=== PATIENT | male | born 1960 | race Caucasian/White ===

== ENCOUNTER 2017-02-06 16:48 | Observation (INO) | payer MEDICARE, MEDICAID ==
[2017-02-06] MEDS ORDERED: Ondansetron 4 MG/2 ML SDV IV PRN (17:43)
[2017-02-06] MEDS ORDERED: Temazepam 15 MG Cap PO PRN (17:43)
[2017-02-06] MEDS ORDERED: HYDROmorphone 2 MG/ML SDV IVPUSH PRN (17:43)
[2017-02-06] MEDS ORDERED: diphenhydrAMINE 25 MG Cap PO PRN (19:29)
[2017-02-06] MEDS ORDERED: Ciprofloxacin in D5W 400 MG in Premix Bag 1 BAG IV SCH ×2 (20:00)
[2017-02-06] MEDS ORDERED: Mirtazapine 15 MG Tab PO SCH (21:00)
[2017-02-06] MEDS ORDERED: atorvaSTATin 20 MG Tab PO SCH (21:00)
[2017-02-06] MEDS ORDERED: metroNIDAZOLE/Normal Saline 100 ML ONE (21:09)
[2017-02-06] MEDS: Sodium Chloride 0.9% 250 ML IV SCH (21:15)
[2017-02-06] MEDS: metroNIDAZOLE/Normal Saline 500 MG in Premix Bag 1 BAG IV SCH (21:16)
[2017-02-06] MEDS: Sodium Chloride 0.9% 10 ML Syringe FLUSH PRN (21:30)
[2017-02-06] MEDS: sulfaSALAzine 500 MG Tab PO SCH (23:06)
[2017-02-06] MEDS: MIRTAZAPINE 15 MG PO ONE ×2 (23:07→23:09)
[2017-02-06] MEDS: ATORVASTATIN 20 MG PO ONE ×2 (23:07→23:09)
[2017-02-07] MEDS: Sodium Chloride 0.9% 10 ML Syringe FLUSH PRN ×4 (00:30→21:29)
[2017-02-07] MEDS: Cefotaxime 1,000 MG in Sodium Chloride 0.9% 50 ML IV SCH ×2 (00:35→05:35)
[2017-02-07] MEDS ORDERED: metroNIDAZOLE/Normal Saline 100 ML ONE (03:22)
[2017-02-07] MEDS: metroNIDAZOLE/Normal Saline 500 MG in Premix Bag 1 BAG IV SCH ×3 (03:35→20:11)
[2017-02-07] MEDS ORDERED: PERMETHRIN TOP SCH ×2 (08:30→21:00)
[2017-02-07] MEDS ORDERED: Aspirin 81 MG Tab.EC PO SCH (09:00)
[2017-02-07] MEDS ORDERED: BIMATOPROST 0.01% EYEBOTH SCH ×2 (09:00→21:00)
[2017-02-07] MEDS: RISPERIDONE 0.5 MG PO SCH (09:04)
[2017-02-07] MEDS: RANITIDINE 150 MG PO SCH (09:04)
[2017-02-07] MEDS: Lisinopril 10 MG Tab *PTOM PO SCH (09:04)
--- NOTE | 2017-02-07 10:12 | PCM.HP ---
H&P History of Present Illness - General Date of Service: 02/07/17 Source of Information: Patient History Limitations: Reports: No limitations - History of Present Illness Initial Comments - Free Text/Narative: This is a 56-year-old male that presented to the ER with moderate abdominal pain. The pain had been there for 2-4 days, insidious onset, progressively getting worse, located on the left lower quadrant. Nothing seemed to help the pain. He does have a history of diverticulosis. He denies any fever or chills or cough. He has denies any diarrhea or constipation or urinary symptoms. He was also being treated for scabies with a rash itchy and at antireticulin treatment. He has a history of type 2 diabetes, obstructive sleep apnea, and obesity have been relatively stable. Left Lower Abdomen Pain Score (Numeric/FACES): 2 - Related Data Allergies/Adverse Reactions: Allergies Allergy/AdvReac Type Severity Reaction Status Date / Time ciprofloxacin Allergy Cannot Verified 02/06/17 17:24 Remember Home Medications: Home Meds Amoxicillin/Potassium Clav [Amox Tr-K Clv 500-125 mg Tab] 1 each PO TID [History] Bimatoprost [LUMIGAN 0.01% Ophth Soln] 1 drop EYEBOTH DAILY 02/06/17 [History] Lisinopril 10 mg PO DAILY 02/06/17 [History] Mirtazapine [Mirtazapine] 15 mg PO BEDTIME 02/06/17 [History] Permethrin [IJD: Permethrin] 1 applic TOP ASDIRECTED 02/06/17 [History] Ranitidine [Zantac] 150 mg PO DAILY 02/06/17 [History] atorvaSTATin [Lipitor] 20 mg PO BEDTIME 02/06/17 [History] diphenhydrAMINE HCl [Complete Allergy] 25 mg PO Q6HR PRN 02/06/17 [History] metFORMIN HCl [Metformin HCl] 500 mg PO BID 02/06/17 [History] risperiDONE 3 mg PO BEDTIME 02/06/17 [History] risperiDONE Microspheres [RisperiDAL Consta] 25 mg IM Q14D 02/06/17 [History] risperiDONE [Risperdal] 0.5 mg PO DAILY 02/06/17 [History] Past Medical History Respiratory History: Reports: Sleep apnea Other Respiratory History: uses cpap Gastrointestinal History: Reports: Diverticulosis, Other (see below) Other Gastrointestinal History: colitis Neurological History: Reports: Migraines, Other (see below) Other Neuro History: takes tylenol, says it doesen't help Psychiatric History: Reports: Schizophrenia Endocrine/Metabolic History: Reports: Diabetes, type II Dermatologic History: Reports: Cellulitis, Other (see below) Other Dermatologic History: scabies - Infectious Disease History Infectious Disease History: Reports: Chicken pox, Measles - Past Surgical History Head Surgeries/Procedures: Reports: None Cardiovascular Surgical History: Reports: Other (see below) Other Cardiovascular Surgeries/Procedures: "hol;e in my heart repaired at age 7 GI Surgical History: Reports: Appendectomy, Colonoscopy Social & Family History - Family History Family Medical History: Noncontributory - Tobacco Use Smoking Status *Q: Current Every Day Smoker Years of Tobacco use: 20 Packs/Tins Daily: 1 Used Tobacco, but Quit: No Second Hand Smoke Exposure: Yes - Caffeine Use Caffeine Use: Reports: Coffee Caffeine Use Comment: cup/day - Alcohol Use Days Per Week of Alcohol Use: 7 Number of Drinks Per Day: 3 Total Drinks Per Week: 21 Date of Last Drink: 01/02/17 Time of Last Drink: 13:00 - Recreational Drug Use Recreational Drug Use: No H&P Review of Systems - Review of Systems: Review Of Systems: ROS reveals no pertinent complaints other than HPI. Exam - Exam Exam: See Below - Vital Signs Vital Signs: Last Vital Signs Temp 98.1 F 02/07/17 08:10 Pulse 85 02/07/17 08:10 Resp 18 02/07/17 08:10 BP 104/75 02/07/17 09:04 Pulse Ox 95 02/07/17 08:10 Weight: 90.673 kg - Exam Quality Assessment: No: supplemental oxygen General: alert, oriented, 4 HEENT: PERRLA, Hearing intact, Mucosa moist & pink, Nares patent, Normal nasal septum, Posterior pharynx clear, Conjunctiva clear, EOMI, EACs clear, TMs clear Neck: supple, trachea midline, 2 Lungs: Clear to auscultation, Normal respiratory effort Cardiovascular: regular rate, regular rhythm Abdomen: normal bowel sounds, distention, other (Tender LLQ on palpation). No: organomegaly (Male) Exam: No hernia, Normal inspection, Normal prostate, Circumcised Rectal (Males) Exam: Deferred Back Exam: normal inspection, full range of motion, NT Extremities: 3, normal inspection, 10 Skin: warm, dry, intact, rash (vesiclar,excoriation) Neurological: cranial nerves intact, reflexes equal bilateral Neuro Extensive - Mental Status: alert, oriented x3, normal mood/affect, normal cognition Neuro Extensive - Motor, Sensory, Reflexes: CN II-XII intact, normal gait, normal reflexes Psychiatric: alert, normal affect, normal mood - Patient Data Lab Results last 24 hrs: Laboratory Results - last 24 hr 02/07/17 Range/Units 06:24 WBC 11.5 (4.5-12.0) X10-3/uL RBC 4.67 (4.30-5.75) x10(6)uL Hgb 13.6 (11.5-15.5) g/dL Hct 39.8 (30.0-51.3) % MCV 85.2 (80-96) fL MCH 29.0 (27.7-33.6) pg MCHC 34.1 (32.2-35.4) g/dL RDW 13.8 (11.5-15.5) % Plt Count 223 (125-369) X10(3)uL Result Diagrams: 02/07/17 06:24 02/06/17 18:10 Imaging Impressions last 24 hrs: Verbal report-"diverticulitis" *Q Meaningful Use (ADM) - VTE *Q VTE Criteria *Q: - Stroke *Q Stroke Criteria *Q: - AMI *Q AMI Criteria *Q: - Problem List (1) Diverticul disease small and large intestine, no perforati or abscess SNOMED Code(s): 260057777 ICD Code: K57.50 - DVRTCLOS OF BOTH SM AND LG INT W/O PERF OR ABSCS W/O BLEED Status: Acute Current Visit: Yes (2) Scabies SNOMED Code(s): 431409502, 85496391, 057698758 ICD Code: B86 - SCABIES Status: Acute Current Visit: Yes (3) Diabetes type 2, controlled SNOMED Code(s): 59569860 ICD Code: E11.9 - TYPE 2 DIABETES MELLITUS WITHOUT COMPLICATIONS Status: Acute Current Visit: Yes (4) KEN (obstructive sleep apnea) SNOMED Code(s): 24042551 ICD Code: G47.33 - OBSTRUCTIVE SLEEP APNEA (ADULT) (PEDIATRIC) Status: Acute Current Visit: Yes (5) Obesity SNOMED Code(s): 745849859 ICD Code: E66.9 - OBESITY, UNSPECIFIED Status: Acute Current Visit: Yes Problem List Initiated/Reviewed/Updated: Yes Orders Last 24hrs: Active Orders 24 hr Category Date Time Status Full Liquid Diet [DIET] Diet 02/07/17 Lunch Ordered CBC WITH AUTO DIFF [HEME] AM Lab 02/08/17 05:11 Ordered COMPREHENSIVE METABOLIC PN,CMP [CHEM] AM Lab 02/08/17 05:11 Ordered Aspirin [Halfprin] Med 02/07/17 09:00 Pending 81 mg PO DAILY Bimatoprost [LUMIGAN 0.01% Ophth Soln] Med 02/07/17 21:00 Active 0 ml EYEBOTH BEDTIME Cefotaxime [Claforan] 1,000 mg Med 02/07/17 00:00 Active Sodium Chloride 0.9% [Normal Saline] 50 ml IV Q6H Lisinopril [Prinivil] Med 02/07/17 09:00 Active 10 mg PO DAILY Mirtazapine [Remeron] Med 02/07/17 21:00 Active 15 mg PO BEDTIME Permethrin [IJD: Permethrin] Med 02/07/17 08:30 Active 1 applic TOP ASDIRECTED Ranitidine [Zantac] Med 02/07/17 09:00 Active 150 mg PO DAILY Sodium Chloride 0.9% [Normal Saline] 250 ml Med 02/06/17 21:00 Active IV ASDIRECTED Sodium Chloride 0.9% [Saline Flush] Med 02/07/17 05:42 Active 10 ml FLUSH ASDIRECTED PRN atorvaSTATin [Lipitor] Med 02/07/17 21:00 Active 20 mg PO BEDTIME diphenhydrAMINE [Benadryl] Med 02/06/17 19:29 Active 25 mg PO Q6H PRN metFORMIN [Glucophage] Med 02/08/17 18:00 Active 500 mg PO BIDMEALS metroNIDAZOLE/Normal Saline [Flagyl 500 MG in NS 100 ML Med 02/06/17 20:00 Active ] 500 mg Premix Bag 1 bag IV Q8H risperiDONE [RisperiDAL] Med 02/07/17 09:00 Active 0.5 mg PO DAILY sulfaSALAzine Med 02/06/17 21:00 Active 500 mg PO BID Saline Lock Insert [OM.PC] Routine Oth 02/07/17 05:42 Ordered Medication Orders Aspirin (Halfprin) 81 mg PO DAILY [facility] Atorvastatin Calcium (Lipitor) 20 mg PO BEDTIME [facility] Bimatoprost (Lumigan 0.01% Ophth Soln) 0 ml EYEBOTH BEDTIME [facility] Diphenhydramine HCl (Benadryl) 25 mg PO Q6H PRN PRN Reason: Itching Hydromorphone HCl (Dilaudid) 0.5 mg IVPUSH Q2H PRN PRN Reason: Pain (severe 7-10) Metronidazole 500 mg/ Premix 100 mls @ 100 mls/hr IV Q8H [facility] Last Admin: 02/07/17 03:35 Dose: 100 mls/hr Infusion: 02/06/17 22:16 Dose: 100 mls/hr Admin: 02/06/17 21:16 Dose: 100 mls/hr Cefotaxime Sodium 1,000 mg/ (Sodium Chloride) 50 mls @ 150 mls/hr IV Q6H [facility] Last Admin: 02/07/17 05:35 Dose: 150 mls/hr Admin: 02/07/17 00:35 Dose: 150 mls/hr Sodium Chloride (Normal Saline) 250 mls @ 100 mls/hr IV ASDIRECTED [facility] Last Admin: 02/06/17 21:15 Dose: 100 mls/hr Lisinopril (Prinivil) 10 mg PO DAILY [facility] Last Admin: 02/07/17 09:04 Dose: 10 mg Metformin HCl (Glucophage) 500 mg PO BIDMEALS [facility] Mirtazapine (Remeron) 15 mg PO BEDTIME [facility] Non-Formulary Medication 1 Each ( Ranitidine [Zantac] 150 Mg) *Ptom 150 mg PO DAILY [facility] Last Admin: 02/07/17 09:04 Dose: 150 mg Non-Formulary Medication (Permethrin [Ijd: Permethrin]) 1 applic TOP ASDIRECTED [facility] Ondansetron HCl (Zofran) 4 mg IV Q4H PRN PRN Reason: Nausea/Vomiting Risperidone (Risperidal) 0.5 mg PO DAILY [facility] Last Admin: 02/07/17 09:04 Dose: 0.5 mg Sodium Chloride (Saline Flush) 10 ml FLUSH ASDIRECTED PRN PRN Reason: Keep Vein Open Last Admin: 02/07/17 06:22 Dose: 10 ml Admin: 02/07/17 00:30 Dose: 10 ml Admin: 02/06/17 21:30 Dose: 10 ml Sulfasalazine (Sulfasalazine) 500 mg PO BID AMI Last Admin: 02/06/17 23:06 Dose: 500 mg Temazepam (Restoril) 15 mg PO BEDTIME PRN PRN Reason: Sleep Assessment/Plan Comment:: Patients with admitted for IV antibiotics, started on ceftazidime and Flagyl. This morning his pain has improved significantly. I will continue the same antibiotics, advance his diet to a full liquid diet, and treat him for scabies. I plan to repeat some blood work in the morning, and it is able to tolerate food diet regular, will proceed with week discharge. Will resume his home medications for type 2 diabetes and other meds tomorrow.
[2017-02-07] MEDS ORDERED: Ketorolac 30 MG/ML SDV IVPUSH PRN (10:13)
[2017-02-07] MEDS: sulfaSALAzine 500 MG Tab PO SCH (10:53)
[2017-02-07] MEDS: Ampicillin/Sulbactam Na 3 GM in Sodium Chloride 0.9% 100 ML IV SCH ×2 (12:00→18:43)
[2017-02-07] MEDS ORDERED: ATORVASTATIN 20 MG PO SCH (21:00)
[2017-02-07] MEDS ORDERED: MIRTAZAPINE 15 MG PO SCH (21:00)
[2017-02-08] MEDS: Ampicillin/Sulbactam Na 3 GM in Sodium Chloride 0.9% 100 ML IV SCH (00:40)
[2017-02-08] MEDS: Sodium Chloride 0.9% 250 ML IV SCH (00:40)
[2017-02-08] MEDS: metroNIDAZOLE/Normal Saline 500 MG in Premix Bag 1 BAG IV SCH ×2 (04:28→05:17)
[2017-02-08] MEDS ORDERED: metroNIDAZOLE 500 MG Tab PO ONE (05:30)
[2017-02-08] MEDS ORDERED: Ciprofloxacin 500 MG Tab PO ONE (05:46)
--- NOTE | 2017-02-08 06:18 | PN ---
DATE SEEN: 02/08/2017 CHIEF COMPLAINT: Diverticulitis. HISTORY OF PRESENT ILLNESS: This is a 56-year-old male, who was admitted for diverticulitis. He is improved. Denies any pain. He is able to tolerate breakfast and lunch of solid food. He has a history of type 2 diabetes and depression that have been stable. The patient had scabies that was treated. REVIEW OF SYSTEMS: Negative for any nausea, vomiting, fever, chills, or shortness of breath. ALLERGIES: Ciprofloxacin. He states that he had a rash from a Cipro-based ear drop. PHYSICAL EXAMINATION: GENERAL: He is pleasant. VITAL SIGNS: Blood pressure and temperature within reference range. ABDOMEN: Nondistended. There is no tenderness to palpation or masses. Bowel sounds are present. FINAL IMPRESSION: 1. Type 2 diabetes, stable. 2. Diverticulitis, stable. 3. Scabies, treated. PLAN: Discharge home on oral Flagyl and Cipro and follow up in the office with the essential physician. Return to the ED with any worsening symptoms. /[id number] HERIBERTO/GUI
[2017-02-08] MEDS: RANITIDINE 150 MG PO SCH (08:00)
[2017-02-08] MEDS: Lisinopril 10 MG Tab *PTOM PO SCH (08:01)
[2017-02-08 08:02] VITALS: BP 124/79
[2017-02-08] MEDS: RISPERIDONE 0.5 MG PO SCH (08:02)
[2017-02-08] MEDS ORDERED: metFORMIN 500 MG Tab *PTOM PO SCH (18:00)
--- NOTE | 2017-02-11 15:18 | ER ---
DATE SEEN: 02/06/2017 TIME SEEN: The patient was seen at 1710 hours. HISTORY OF PRESENT ILLNESS: This patient was seen in the clinic and noted to have "diverticulitis", consequently was transferred to the ED for further evaluation and treatment. He has abdominal pain. He drinks 3 beers a day. He "had none for a month." He has periods of end-inspiratory pain in his left chest and he has pain in the left lower quadrant. He describes the pain as 2/10. He has decreased micturition because he has decreased fluid intake. He has not had pain like this in the past. No associated nausea, vomiting, diarrhea, constipation, change of bowels, blood in the stool, or hematochezia. He apparently is in the [facility] at the [facility] for anxiety and stress and also he is known to have colitis, for which he is taking sulfasalazine 500 mg b.i.d. This was not forthcoming until later in the encounter. For other health problems, he takes aspirin 81 mg daily, but he is not taking it currently because he has had problems with bleeding. Also recently, he was diagnosed with scabies and was started on permethrin . He has some redness in his feet, which he describes as scabies of the feet (Portuguese scabies?). Schizophrenia. He was treated with Augmentin for "foot swelling and infection." MEDICATIONS: 1. Atorvastatin for dyslipidemia. 2. Bimatoprost (Lumigan) 0.01% ophthalmic solution daily for glaucoma. 3. Lisinopril for hypertension. 4. Mirtazapine for depression. 5. Risperdal, depression and anxiety. 6. Temazepam for anxiety. ALLERGIES: Ciprofloxacin. PHYSICAL EXAMINATION: VITAL SIGNS: Blood pressure 131/83, heart rate 82 and regular, 18 respirations, 95% oxygen saturation on room air. Temperature is 36.9 degrees centigrade. GENERAL: This is an overweight patient who is alert. HEENT: PERRLA intact. Pharynx without abnormality. No thyromegaly or masses. NECK: No cervical adenopathy. LUNGS: Clear to auscultation without rales, rhonchi, or wheezes. HEART: S1, S2. No irregularity of rhythm. No S3, no S4. ABDOMEN: Soft, but there is guarding in right upper quadrant and right lower quadrant. No rebound. No masses noted. Bowel sounds present. No tympany. No tinkles. No CVA percussion tenderness. GENITALIA: Normal to inspection. EXTREMITIES: Lower extremities without edema. Deep tendon reflexes hypoactive in upper and lower extremities. NEUROLOGIC: Cranial nerves 2 through 12 intact. Deep tendon reflexes, knee jerks, ankle jerks absent. FEET: Mild erythema, no crusts, no breaks in skin, no scabetic lesions. DIAGNOSTIC DATA: A CT was performed because of the patient's abdominal pain. The proximal colon has diverticulitis, fat infiltration increased. Platelets 257,000, white count of 15,200 without a left shift, and mild hypokalemia and hyponatremia, (sodium 134, potassium 3.4), glucose 182, lactic acid 1.4, ALT 31, and remainder of complete metabolic panel is negative. Urine is pending. ASSESSMENT: Diverticulitis. The patient's status was discussed with doctor on- call, Dr. Ybarra. The patient was admitted to observation and treated with Flagyl 500 mg q.i.d. IV plus ceftazidime 1 g q. 6 hours. DIAGNOSES: 1. Diverticulitis. 2. Abdominal pain. 3. Obesity. 4. Left chest discomfort on end-inspiration with no evidence for pneumonia. 5. Mild hypokalemia. 6. Leukocytosis with neutrophilia. 7. Dyslipidemia. 8. Glaucoma. 9. Depression and anxiety. 10.Colitis. /[id number] RAVEN/GUI [employer]
== END 2017-02-08 09:56 | disposition home or self-care (01) ==
LOC: FB.ED 16:48 → FB.MS 19:14
PROVIDERS: ADMIT Emergency Medicine; ATTEND Family Medicine
DX: K57.32 Diverticulitis of large intestine without perforation or abscess without bleeding (principal); K57.12 Diverticulitis of small intestine without perforation or abscess without bleeding; B86 Scabies; G47.33 Obstructive sleep apnea (adult) (pediatric); E11.9 Type 2 diabetes mellitus without complications; Z79.84 Long term (current) use of oral hypoglycemic drugs; E66.9 Obesity, unspecified; F20.9 Schizophrenia, unspecified; Z88.1 Allergy status to other antibiotic agents; Z79.899 Other long term (current) drug therapy; F17.200 Nicotine dependence, unspecified, uncomplicated; K57.92 Diverticulitis of intestine, part unspecified, without perforation or abscess without bleeding; K65.9 Peritonitis, unspecified; K76.0 Fatty (change of) liver, not elsewhere classified; M51.37 Other intervertebral disc degeneration, lumbosacral region
CPT/HCPCS: 36415; 74177; 80053; 83605; 85025; 85027; 96365; 96366; 96367; 96375; 99218; 99284; A4217; A9270; G0378; J0295; J0698; J7030; J7050; Q9967

== ENCOUNTER 2022-07-03 12:05 | Emergency (ER) | payer MEDICARE, MEDICAID ==
[2022-07-03] MEDS ORDERED: Sodium Chloride 0.9% 10 ML Syringe FLUSH PRN (12:13)
[2022-07-03] MEDS ORDERED: Metoprolol Tartrate 50 MG Tab PO STA (12:17)
[2022-07-03 12:28] VITALS: BP 121/80; PULSE 135
[2022-07-03 12:47] LABS: ESTIMATED GFR 86 mL/min (>60)
[2022-07-03] MEDS ORDERED: Diltiazem 25 MG/5 ML SDV IVPUSH STA (13:18)
[2022-07-03] MEDS ORDERED: Sodium Chloride 0.9% 1,000 ML IV SCH (13:30)
[2022-07-03] MEDS ORDERED: Amiodarone 150 MG/3 ML SDV IVPUSH ONE (14:20)
[2022-07-03] MEDS ORDERED: Amiodarone 150 MG in Dextrose 5% in Water 100 ML IV ONE ×2 (14:30)
== END 2022-07-03 16:10 ==
LOC: FB.ED 12:06
DX: I48.92 Unspecified atrial flutter (principal); I50.9 Heart failure, unspecified; E11.9 Type 2 diabetes mellitus without complications; Z88.1 Allergy status to other antibiotic agents; Z79.899 Other long term (current) drug therapy; Z79.84 Long term (current) use of oral hypoglycemic drugs; Z20.822 Contact with and (suspected) exposure to COVID-19
CPT/HCPCS: 36415; 71045; 80053; 83735; 83880; 84484; 85025; 85610; 85730; 93005; 96361; 96365; 96375; 96376; 99285; A9270; J0282; J3490; J7030; U0002